=== PATIENT | female | born 1955 | race African-American/Black ===

== ENCOUNTER → 2017-09-30 | Outpatient (CLI) | payer MEDICARE, MEDICAID ==
[~2017-09-30] MED LIST: ASPI-1159 PO; ATOR10TA69 PO; BENA20TA3 PO; CARI350T PO; METO25TA6 PO; VENL37.586 PO
== END | disposition home or self-care (01) ==
LOC: MAMMO 10:15
PROVIDERS: ATTEND Internal Medicine
DX: Z12.31 Encounter for screening mammogram for malignant neoplasm of breast (principal)
CPT/HCPCS: 77067